=== PATIENT | female | born 1960 | race African-American/Black ===

== ENCOUNTER 2025-02-22 13:06 | Inpatient (IN) | payer MEDICARE, MEDICAID ==
[~2025-02-22] VITALS: Ht 165.1 cm; Wt 112.9 kg
[2025-02-22 13:09] VITALS: O2SAT 98
[2025-02-22] MEDS: KETOROLAC 15MG/ML VIAL IV ONE (13:42)
[2025-02-22] MEDS: SODIUM CHLORIDE 0.9% 1,000 ML IV ONE (13:42)
[2025-02-22] MEDS: CEFTRIAXONE 1GM/50ML 50 ML IV ONE (13:42)
[2025-02-22 14:11] LABS: BASOPHILS % 0.4 % (0.0-2.0); EOSINOPHILS % 2.0 % (0.0-5.0); HEMATOCRIT. 49.1 % (36.0-48.0); HEMOGLOBIN. 16.1 g/dL (12.0-16.0); LYMPHOCYTES % 17.0 % (20.0-50.0); MEAN PLATELET VOLUME 8.9 fl (7.4-10.4); MONOCYTES % 5.5 % (2.0-8.0); NEUTROPHILS % 75.1 % (40.0-76.0); PLATELET 191 x1000/uL (130-400); RED BLOOD CELL COUNT 5.12 mill/uL (4.2-5.4); RED CELL DISTRIBUTION WIDTH 13.4 % (11.6-14.6)
[2025-02-22 14:19] LABS: CREATININE 0.8 mg/dL (0.6-1.0); UREA NITROGEN BLOOD 9 mg/dL (9-23)
[2025-02-22 14:20] LABS: ASPARTATE AMINOTRANSFERASE 15 IU/L (<34)
[2025-02-22 14:21] LABS: BILIRUBIN DIRECT 0.3 mg/dL (<=3.0); BILIRUBIN TOTAL 1.1 mg/dL (0.1-1.0); PROTEIN TOTAL 7.1 g/dL (6.0-8.3)
[2025-02-22 14:47] LABS: INR 1.1
[2025-02-22 15:28] LABS: CLARITY URINE CLEAR (CLEAR); COLOR URINE YELLOW (YELLOW); GLUCOSE URINE 3+ (NEGATIVE); KETONES URINE NEGATIVE (NEGATIVE); LEUKOCYTE ESTERASE URINE NEGATIVE (NEGATIVE); NITRITE URINE NEGATIVE (NEGATIVE); OCCULT BLOOD URINE 2+ (NEGATIVE); PH URINE 5.5 (4.5-8.0); PROTEIN URINE TRACE (NEGATIVE); SPECIFIC GRAVITY URINE 1.042 (1.005-1.030); UROBILINOGEN URINE 1.0 E.U./dL (0.2-1.0)
[2025-02-22] MEDS ORDERED: ACETAMINOPHEN 325MG TABLET PO PRN ×2 (15:45)
[2025-02-22] MEDS ORDERED: CLONIDINE 0.1MG TABLET PO PRN (15:45)
[2025-02-22] MEDS ORDERED: IPRATROPIUM/ALBUTEROL 0.5-3(2.5)MG/3ML NEB HHN PRN (15:45)
[2025-02-22] MEDS ORDERED: ONDANSETRON HCL 4MG/2ML INJ IV PRN (15:45)
[2025-02-22 16:43] LABS: BACTERIA URINE NONE SEEN; WBC URINE NONE SEEN /hpf (0-2)
[2025-02-22 16:44] LABS: MUCUS URINE 2+ /lpf (< = 2+); SQUAMOUS EPITHELIAL CELL URINE FEW /lpf (RARE/1+)
[2025-02-22 20:00] VITALS: BP 128/47; PULSE 83; RESP 18; TEMP 36.5; O2SAT 99
[2025-02-22 23:16] VITALS: BP 128/47; PULSE 83; RESP 18; TEMP 36.5292
[2025-02-23] VITALS: BP 130/70; PULSE 95; RESP 18; TEMP 36.3; O2SAT 99
[2025-02-23] MEDS: DIPHENHYDRAMINE 50MG/ML VIAL IV NR (00:34)
[2025-02-23 04:00] VITALS: BP 130/72; PULSE 79; RESP 18; TEMP 36.3; O2SAT 98
[2025-02-23] MEDS ORDERED: DEXTROSE 50% WATER 50ML SYRINGE IV PRN (07:00)
[2025-02-23] MEDS: BLOOD SUGAR DIAGNOSTIC STRIP TEST SCH (07:00)
[2025-02-23] MEDS: INSULIN LISPRO 100 UNITS/ML SUBCUT SCH (07:30)
[2025-02-23 08:00] VITALS: BP 126/90; PULSE 90; RESP 16; TEMP 36.6; O2SAT 97
[2025-02-23 08:40] LABS: *AMPHETAMINES SCREEN URINE NEGATIVE (NEGATIVE); *BARBITURATES SCREEN URINE NEGATIVE (NEGATIVE); *BENZODIAZEPINES SCREEN URINE NEGATIVE (NEGATIVE); *COCAINE SCREEN URINE NEGATIVE (NEGATIVE); CANNABINOID URINE SCREEN NEGATIVE (NEGATIVE); METHADONE URINE SCREEN NEGATIVE (NEGATIVE); OPIATES URINE SCREEN NEGATIVE (NEGATIVE); PHENCYCLIDINE URINE SCREEN NEGATIVE (NEGATIVE)
[2025-02-23 08:41] LABS: ECSTASY MDMA SCREEN URINE NEGATIVE (NEGATIVE)
[2025-02-23 12:00] VITALS: BP 114/50; PULSE 83; RESP 19; TEMP 36.8; O2SAT 99
[2025-02-23] MEDS: ENOXAPARIN 30MG/0.3ML SYR SUBCUT SCH (12:08)
[2025-02-23] MEDS: DIPHENHYDRAMINE 50MG/ML VIAL IV PRN (13:58)
[2025-02-23] MEDS: KETOCONAZOLE 2% CREAM 15GM TOP SCH (13:58)
[2025-02-23] MEDS: CEFTRIAXONE 1GM/50ML 50 ML IV SCH (13:59)
[2025-02-23 14:03] LABS: CREATININE 0.7 mg/dL (0.6-1.0); UREA NITROGEN BLOOD 10 mg/dL (9-23)
[2025-02-23 16:00] VITALS: BP 128/54; PULSE 77; RESP 16; TEMP 36.6; O2SAT 100
[2025-02-23] MEDS: NICOTINE 7MG PATCH TD SCH (19:00)
[2025-02-23 20:00] VITALS: BP 131/56; PULSE 82; RESP 16; TEMP 36.4; O2SAT 99
[2025-02-23] MEDS: ATORVASTATIN CALCIUM 20MG TABLET PO SCH (22:17)
[2025-02-23] MEDS: PANTOPRAZOLE SODIUM 40 MG/VIAL IV SCH (22:18)
[2025-02-24] VITALS (8 sets, daily range): BP systolic 116–142; BP diastolic 54–77; PULSE 74–108; RESP 16–20; TEMP 36.4–36.7; O2SAT 98–99
[2025-02-24 06:45] LABS: BASOPHILS % 0.4 % (0.0-2.0); EOSINOPHILS % 4.6 % (0.0-5.0); HEMATOCRIT. 46.8 % (36.0-48.0); HEMOGLOBIN. 15.5 g/dL (12.0-16.0); LYMPHOCYTES % 31.6 % (20.0-50.0); MEAN PLATELET VOLUME 8.9 fl (7.4-10.4); MONOCYTES % 6.2 % (2.0-8.0); NEUTROPHILS % 57.2 % (40.0-76.0); PLATELET 198 x1000/uL (130-400); RED BLOOD CELL COUNT 4.94 mill/uL (4.2-5.4); RED CELL DISTRIBUTION WIDTH 13.3 % (11.6-14.6)
[2025-02-24 07:02] LABS: CREATININE 0.8 mg/dL (0.6-1.0); TRIGLYCERIDE 86 mg/dL (0-150); UREA NITROGEN BLOOD 8 mg/dL (9-23)
[2025-02-24 07:03] LABS: LDL CHOLESTEROL 91 mg/dL (5-100)
[2025-02-24 07:04] LABS: PHOSPHORUS 3.3 mg/dL (2.5-4.9)
[2025-02-24] MEDS ORDERED: KETO15CR2 TOP (13:58)
== END 2025-02-24 19:07 | disposition home or self-care (01) | DRG 872 ==
LOC: ER 13:06 → 8EST 15:02 → EDBEDREQTM 15:22 → EDBEDREQ 15:22 → ENRESERV 17:06
PROVIDERS: ADMIT Student in an Organized Health Care Education/Training Program; ATTEND Student in an Organized Health Care Education/Training Program
DX: A41.9 Sepsis, unspecified organism (principal); N39.0 Urinary tract infection, site not specified; Z68.41 Body mass index [BMI] 40.0-44.9, adult; I11.0 Hypertensive heart disease with heart failure; I50.9 Heart failure, unspecified; K21.9 Gastro-esophageal reflux disease without esophagitis; E66.01 Morbid (severe) obesity due to excess calories; E86.0 Dehydration; L30.4 Erythema intertrigo; R74.01 Elevation of levels of liver transaminase levels; E78.5 Hyperlipidemia, unspecified; J44.9 Chronic obstructive pulmonary disease, unspecified; F17.210 Nicotine dependence, cigarettes, uncomplicated; R42 Dizziness and giddiness; Z87.440 Personal history of urinary (tract) infections; Z88.5 Allergy status to narcotic agent
CPT/HCPCS: 36415; 71045; 74176; 76700; 80048; 80061; 80076; 80305; 81003; 82962; 83036; 83605; 83735; 83880; 84100; 84145; 85025; 93005; 96365; 99291; J0696; J1200; J1650; J1885; J2470; J7030